=== PATIENT | male | born 1985 | race Caucasian/White ===

== ENCOUNTER 2016-08-03 10:23 | Emergency (ER) | payer OTHER ==
--- NOTE | 2016-08-03 11:23 | UC ---
Shoulder Pain HPI - HPI Summary HPI Summary: Left shoulder pain started 2 days ago wiithout any injury noted by pt. Pt states he has never had an injury to that arm. right handed. has some mild tingling going into the fingers. no chest pain. ROM limited bc pain in all directions. no trauma. started gradually 2 days ago and has increased pain to 5- 6/10 today that is constant, but worse with certain movements. - History of Current Complaint Chief Complaint: UCUpperExtremity Stated Complaint: LEFT SHOULDER PAIN Time Seen by Provider: 08/03/16 11:15 - Allergies/Home Medications Allergies/Adverse Reactions: Allergies Allergy/AdvReac Type Severity Reaction Status Date / Time Pantoprazole [From Protonix] Allergy Anaphylatic Verified 08/03/16 11:20 Shock Bees Allergy Severe Anaphylatic Uncoded 05/24/15 16:44 Shock Home Medications: Home Medications Valsartan 40 mg PO DAILY 08/03/16 [History Confirmed 08/03/16] PMH/Surg Hx/FS Hx/Imm Hx Previously Healthy: Yes Cardiovascular History Of: Reports: Hypertension Respiratory History Of: Denies: Asthma, Bronchitis - Surgical History Surgical History: Yes Surgery Procedure, Year, and Place: BACK SX. T&A - Family History Known Family History: Negative: Cardiac Disease - Social History Alcohol Use: Occasionally Substance Use Type: None Smoking Status (MU): Light Every Day Tobacco Smoker Type: Cigarettes Amount Used/How Often: 2-3 cigs a day Length of Time of Smoking/Using Tobacco: 5 YRS Have You Smoked in the Last Year: Yes Household Exposure Type: Cigarettes Review of Systems Constitutional: Negative Skin: Negative Eyes: Negative ENT: Negative Respiratory: Negative Cardiovascular: Negative Gastrointestinal: Negative Genitourinary: Negative Motor: Decreased ROM Neurovascular: Negative Musculoskeletal: Negative Neurological: Negative Psychological: Negative All Other Systems Reviewed And Are Negative: Yes Physical Exam Triage Information Reviewed: Yes Appearance: Well-Appearing, No Pain Distress, Well-Nourished - very pleasant Vital Signs: Initial Vital Signs Temp 98.3 F 08/03/16 11:08 Pulse 81 08/03/16 11:08 Resp 16 08/03/16 11:08 BP 142/85 08/03/16 11:08 Pulse Ox 100 08/03/16 11:08 Vital Signs Reviewed: Yes Eye Exam: Normal ENT Exam: Normal Neck exam: Normal Respiratory Exam: Normal Respiratory: Positive: Lungs clear, Normal breath sounds Cardiovascular Exam: Normal Cardiovascular: Positive: RRR, No Murmur, Pulses Normal, Brisk Capillary Refill Abdominal Exam: Normal Musculoskeletal: Positive: Strength Intact, No Edema, Other: - left shoulder with mild tenderness at AC joint. Limited abduction to 130 and flexion to 90 degrees, limited external rotation, intrenal rotation to hip only. strength intact. + 2 B/T/BR b/l. sensation intact. CR brisk. Neurological Exam: Normal Psychological Exam: Normal Skin Exam: Normal Shoulder Course/Dx - Course Course Of Treatment: left shoulder xray - CALCIFIC TENDINITIS, OTHERWISE NEGATIVE. - Differential Dx/Diagnosis Differential Diagnosis/HQI/PQRI: Arthritis, Bursitis, Sprain, Strain, Tendonitis Provider Diagnoses: left shoulder calcific tendonitis Discharge - Discharge Plan Condition: Stable Disposition: HOME Patient Education Materials: Calcific Tendinitis (ED) Referrals: Moni Alvarado RN [Primary Care Provider] - Delroy Sheikh MD [Medical Doctor] - 2 Days Additional Instructions: you can take ibuprofen 600mgs every 8 hours as needed for pain. ice. call the ortho for follow up. xray shows calcific tendinosis
--- NOTE | 2016-08-03 11:52 | RAD ---
INDICATION: Left shoulder pain. No trauma COMPARISON: None TECHNIQUE: Routine frontal and Y views were obtained. FINDINGS: There are no acute bony findings. The articular relationships are maintained. There is evidence of calcific tendinitis. IMPRESSION: CALCIFIC TENDINITIS, OTHERWISE NEGATIVE.
[2016-08-03 12:08] VITALS: BP 136/80
== END 2016-08-03 12:12 | disposition home or self-care (01) ==
LOC: UCCORT 10:23
DX: M75.32 Calcific tendinitis of left shoulder (principal); I10 Essential (primary) hypertension; F17.210 Nicotine dependence, cigarettes, uncomplicated
CPT/HCPCS: 99212; G0463

== ENCOUNTER 2016-11-22 15:58 | Emergency (ER) | payer OTHER ==
[2016-11-22 16:12] VITALS: BP 141/84
--- NOTE | 2016-11-22 16:27 | UC ---
Skin Complaint HPI - History of Current Complaint Chief Complaint: UCSkin Time Seen by Provider: 11/22/16 16:17 Stated Complaint: STEPPED ON NAIL Hx Obtained From: Patient Onset/Duration: Sudden Onset - stepped on a nail last night, Still Present - still a little sore Skin Exposure Onset/Duration: Days Ago - 1 Timing: Constant Onset Severity: Moderate Current Severity: Mild Location: Foot (Left) Character: Redness, Painful Aggravating: Touch Alleviating: Nothing Associated Signs & Symptoms: Positive: Tenderness. Negative: Fever, Chills, Rash Related History: Trauma - stepped on a nail. - Allergy/Home Medications Allergies/Adverse Reactions: Allergies Allergy/AdvReac Type Severity Reaction Status Date / Time Pantoprazole [From Protonix] Allergy Anaphylatic Verified 11/22/16 16:08 Shock Bees Allergy Severe Anaphylatic Uncoded 11/22/16 16:08 Shock Review of Systems All Other Systems Reviewed And Are Negative: Yes PMH/Surg Hx/FS Hx/Imm Hx Cardiovascular History: Hypertension - Surgical History Surgical History: Yes Surgery Procedure, Year, and Place: BACK SX. T&A - Family History Known Family History: Positive: Cardiac Disease, Hypertension, Diabetes - Social History Occupation: Employed Full-time Lives: Alone Alcohol Use: Occasionally Substance Use Type: None Smoking Status (MU): Heavy Every Day Tobacco Smoker Type: Cigarettes Amount Used/How Often: 1/2 PPD Length of Time of Smoking/Using Tobacco: 5 YRS Have You Smoked in the Last Year: Yes Household Exposure Type: Cigarettes Cessation Counseling: Patient Advised to Stop Physical Exam Triage Information Reviewed: Yes Appearance: Well-Appearing, No Pain Distress, Well-Nourished Vital Signs: Initial Vital Signs Temp 98.1 F 11/22/16 16:08 Pulse 86 11/22/16 16:08 Resp 16 11/22/16 16:08 BP 141/84 11/22/16 16:08 Pulse Ox 99 11/22/16 16:08 Vital Signs Reviewed: Yes Eyes: Positive: Conjunctiva Clear Neck exam: Normal Respiratory Exam: Normal Cardiovascular Exam: Normal Musculoskeletal Exam: Normal Neurological Exam: Normal Psychological Exam: Normal Skin: Positive: Other - see diagram, puncture wound with erythema. Course/Dx - Differential Diagnoses - Skin Complaint Differential Diagnoses: Abscess, Allergic Reaction, Cellulitis - Diagnoses Provider Diagnoses: Puncture wound left foot, no repair. Cellulitis left foot. Discharge - Discharge Plan Condition: Stable Disposition: HOME Prescriptions: Amoxicillin/Clavulanate TAB* [Augmentin TAB 875*] 875 mg PO BID #14 tab Patient Education Materials: Cellulitis (ED), Puncture Wound (ED), Amoxicillin/ Clavulanate Potassium (By mouth) Referrals: Moni Alvarado RN [Primary Care Provider] - If Needed (continue to follow up on the blood pressure.) Additional Instructions: You can use imodium (or generic) with each dose of augmentin (Amox/Clav) to prevent the diarrhea. Images Feet (Multiple View): 1 - Puncture wound 2 - redness, swelling and warmth
[2016-11-22] MEDS ORDERED: Tetan/Diph/Pertus SYR(Tdap)* 0.5 ML SYR(BOOSTRIX) use SYR IM ONE (16:35)
[2016-11-22] MEDS ORDERED: Amoxicillin/Clavulanate TAB* 875 MG PO ONE (16:39)
== END 2016-11-22 16:59 | disposition home or self-care (01) ==
LOC: UCCORT 15:58
DX: S91.332A Puncture wound without foreign body, left foot, initial encounter (principal); L03.116 Cellulitis of left lower limb; W45.0XXA Nail entering through skin, initial encounter; F17.210 Nicotine dependence, cigarettes, uncomplicated
CPT/HCPCS: 90471; 90715; 99212; A9270-GY; G0463

== ENCOUNTER 2017-09-23 13:47 | Emergency (ER) | payer OTHER ==
--- NOTE | 2017-09-23 15:00 | UC ---
Throat Pain/Nasal Piero HPI - HPI Summary HPI Summary: 31 y/o male presents to the urgent care c/o bilateral ear pain and sore throat worsening over past week. Pt reports He recently travelled on a plane and returned about a week ago. He then developed on and off B/L ear pain associated w/ mild sore throat and subjective fever at home. Pain is 2/10 now. Pt has not taking anything to alleviate symptoms. Pt denies DEGROOT, dizziness, tinnitus, SOB, chest pain, abdominal pain, N/V/D. - History of Current Complaint Stated Complaint: BILATERAL EAR COMPLAINT SORE THROAT Time Seen by Provider: 09/23/17 14:58 Hx Obtained From: Patient Onset/Duration: Gradual Onset, Lasting Weeks - 1 wee, Still Present, Worse Since - yesterday Severity: Mild Pain Intensity: 2 Pain Scale Used: 0-10 Numeric Cough: None Associated Signs & Symptoms: Positive: Dysphagia - mild sore throat, Fever - low subjective fever at home - Epiglottits Risk Factors Epiglottis Risk Factors: Negative - Allergies/Home Medications Allergies/Adverse Reactions: Allergies Allergy/AdvReac Type Severity Reaction Status Date / Time pantoprazole [From Protonix] Allergy Anaphylatic Verified 09/23/17 15:00 Shock Bees Allergy Severe Anaphylatic Uncoded 09/23/17 15:00 Shock PMH/Surg Hx/FS Hx/Imm Hx Previously Healthy: Yes Cardiovascular History: Hypertension - Surgical History Surgical History: Yes Surgery Procedure, Year, and Place: BACK SX. T&A - Family History Known Family History: Positive: Cardiac Disease, Hypertension, Diabetes - Social History Occupation: Employed Full-time Lives: With Family Alcohol Use: Occasionally Substance Use Type: None Smoking Status (MU): Heavy Every Day Tobacco Smoker Type: Cigarettes Amount Used/How Often: 1/2 PPD Length of Time of Smoking/Using Tobacco: 5 YRS Have You Smoked in the Last Year: Yes Household Exposure Type: Cigarettes Review of Systems Constitutional: Negative - grade fever at home subjective, Fever Skin: Negative Eyes: Negative ENT: Sore Throat, Ear Ache - B/L ear pain Respiratory: Negative Cardiovascular: Negative Gastrointestinal: Negative Genitourinary: Negative Motor: Negative Neurovascular: Negative Musculoskeletal: Negative Neurological: Negative Psychological: Negative Is Patient Immunocompromised?: No All Other Systems Reviewed And Are Negative: Yes Physical Exam - Summary Physical Exam Summary: VITAL SIGNS: Reviewed. GENERAL: Patient is a well developed and nourished male who is sitting comfortable in the examining table. Patient is not in any acute respiratory distress. HEAD AND FACE: No signs of trauma. No ecchymosis, hematomas or skull depressions. No sinus tenderness. EYES: PERRLA, EOMI x 2, No injected conjunctiva, no nystagmus. No photophobia. EARS: Hearing grossly intact. Ear canals and tympanic membranes are within normal limits. MOUTH: Positive pharynx with mild erythema, no exudates, no palatal petechiae. NO B/L tonsillar enlargement with exudate. Uvula in midline. NECK: Supple, trachea is midline, Positive mild anterior cervical lymphadenopathy, no JVD, no carotid bruit, no c-spine tenderness, neck with full ROM. No meningeal signs, no Kernig's or brudzinskis signs. CHEST: Symmetric, no tenderness at palpation LUNGS: Clear to auscultation bilaterally. No wheezing or crackles. CVS: Regular rate and rhythm, S1 and S2 present, no murmurs or gallops appreciated. ABDOMEN: Soft, non-tender. No signs of distention. No rebound no guarding, and no masses palpated. Bowel sounds are normal. EXTREMITIES: FROM in all major joints, no edema, no cyanosis or clubbing. NEURO: Alert and oriented x 3. No acute neurological deficits. Speech is normal and follows commands. SKIN: Dry and warm Triage Information Reviewed: Yes Throat Pain/Nasal Course/Dx - Course Course Of Treatment: 31 y/o male presents to the urgent care c/o bilateral ear pain and sore throat worsening over past week. Pt reports He recently travelled on a plane and returned about a week ago. He then developed on and off B/L ear pain associated w/ mild sore throat and subjective fever at home. Pain is 2/ 10 now. Pt has not taking anything to alleviate symptoms. Pt denies DEGROOT, dizziness, tinnitus, SOB, chest pain, abdominal pain, N/V/D. Hx obtained. Rapid strep test ordered: negative. Pt w/ a viral pharyngitis on examination. Pt Rx ibuprofen PO to alleviates symptoms of pain and swelling. Advised on hand washing to avoid spreading. Pt advised to rest, eat well and avoid strenuous exercise. If symptoms do not improve or worsen advised to return to the urgent care or f/u with her PCP for further evaluation and treatment. Pt understood and agreed - Differential Dx/Diagnosis Differential Diagnosis/HQI/PQRI: Mononucleosis, Otitis Media, Pharyngitis, Sinusitis, Tonsillitis, URI Provider Diagnoses: 1- viral pharyngitis. 2- Otalgia Discharge - Sign-Out/Discharge Documenting (check all that apply): Discharge/Admit/Transfer - D/C home - Discharge Plan Condition: Stable Disposition: HOME Prescriptions: Ibuprofen TAB* [Motrin TAB* 800 MG] 800 mg PO Q6H PRN #20 tab PRN Reason: otalgia Patient Education Materials: Pharyngitis (ED), Earache (ED) Referrals: Marizol BRYANTP,Moni [Primary Care Provider] - 2 Days Additional Instructions: 1-Please take ibuprofen PO q6-8hrs prn as instructed after meals to alleviate pain and swelling. Increase fluid intake, eat well, rest and avoid strenuous exercise 2-If symptoms do not improve or worsen please return to the urgent care or f/u with your PCP for further evaluation and treatment. - Billing Disposition and Condition Condition: STABLE Disposition: HOME
[2017-09-23 15:03] VITALS: BP 132/80
== END 2017-09-23 15:22 | disposition home or self-care (01) ==
LOC: UCCORT 13:47
DX: H92.03 Otalgia, bilateral (principal); J02.8 Acute pharyngitis due to other specified organisms; Z88.8 Allergy status to other drugs, medicaments and biological substances; Z91.030 Bee allergy status; I10 Essential (primary) hypertension; F17.210 Nicotine dependence, cigarettes, uncomplicated
CPT/HCPCS: 99211; G0463

== ENCOUNTER 2018-04-09 17:47 | Emergency (ER) | payer SELFPAY ==
[2018-04-09] MEDS ORDERED: methylPREDNISolone 125 MG* 2 ML VIAL IM ONE (18:10)
[2018-04-09] MEDS ORDERED: LoraTADine TAB(NF) 10 MG TAB (AUTOSUB to CETIRIZINE) PO ONE ×2 (18:13→18:27)
--- NOTE | 2018-04-09 18:16 | UC ---
Skin Complaint HPI - HPI Summary HPI Summary: per pharmacists: "bilateral arms, abdomin and chest covered with hives, denies any allergens" - started today at 4 AM. on arms, legs, abd, chest and back. has taken 50mgs benadryl several times w/o any relief. denies swelling of lips, tongue, throat. no SOB. no wheezing. no abd pain, n/v/d. -has bee sting allergy. has epi pen even with him but did not use -saw his tamper operator yesterday for blood work but no allergy shots. he has had several allergic reactions and rying to figure out what the cause is. needs to be off of anti-histamines for a period of time before he gets labs done. [place] all [place] bc [place] out of town. concerned about cross contamination and suspects shrimp allergy -Here w/ [facility] Turner -denies CP, palpitations. no h/o arrythmias. +HTN, takes losartan 25mgs daily but did not take it today - History of Current Complaint Chief Complaint: UCSkin Time Seen by Provider: 04/09/18 18:03 Stated Complaint: SKIN CONCERN Pain Intensity: 0 - Allergy/Home Medications Allergies/Adverse Reactions: Allergies Allergy/AdvReac Type Severity Reaction Status Date / Time pantoprazole [From Protonix] Allergy Anaphylatic Verified 04/09/18 18:05 Shock Bees Allergy Severe Anaphylatic Uncoded 04/09/18 18:05 Shock Home Medications: Home Medications Losartan TAB* [Cozaar TAB*] 25 mg PO DAILY 04/09/18 [History Confirmed 04/09/18] Review of Systems All Other Systems Reviewed And Are Negative: Yes Constitutional: Positive: Negative Skin: Positive: Negative Eyes: Positive: Negative ENT: Positive: Negative Respiratory: Positive: Negative Cardiovascular: Positive: Negative Gastrointestinal: Positive: Negative Genitourinary: Positive: Negative Motor: Positive: Negative Neurovascular: Positive: Negative Musculoskeletal: Positive: Negative Neurological: Positive: Negative Psychological: Positive: Negative PMH/Surg Hx/FS Hx/Imm Hx Previously Healthy: Yes - Surgical History Surgical History: Yes Surgery Procedure, Year, and Place: BACK SX. T&A - Family History Known Family History: Positive: Cardiac Disease, Hypertension, Diabetes - Social History Alcohol Use: Occasionally Substance Use Type: None Smoking Status (MU): Heavy Every Day Tobacco Smoker Type: Cigarettes Amount Used/How Often: 1/2 PPD Length of Time of Smoking/Using Tobacco: 5 YRS Have You Smoked in the Last Year: Yes Household Exposure Type: Cigarettes Physical Exam Triage Information Reviewed: Yes Appearance: Well-Appearing, No Pain Distress, Well-Nourished Vital Signs: Initial Vital Signs Temp 98.1 F 04/09/18 18:01 Pulse 81 04/09/18 18:01 Resp 18 04/09/18 18:01 BP 140/81 04/09/18 18:01 Pulse Ox 100 04/09/18 18:01 Vital Signs Reviewed: Yes Eye Exam: Normal ENT: Positive: Normal ENT inspection, Pharynx normal, Uvula midline, Other - no swelling of lips, tongue or uvula.. Negative: Nasal congestion Neck exam: Normal Neck: Positive: Supple, Nontender, No Lymphadenopathy Respiratory Exam: Normal Respiratory: Positive: Lungs clear, Normal breath sounds, No respiratory distress, No accessory muscle use. Negative: Crackles, Rhonchi, Stridor, Wheezing Cardiovascular Exam: Normal Cardiovascular: Positive: RRR, No Murmur, Pulses Normal Abdomen Description: Positive: Nontender, Soft Bowel Sounds: Positive: Present Musculoskeletal Exam: Normal Neurological Exam: Normal Psychological Exam: Normal Skin: Positive: Rashes - significant amount of elevated macules, some coalesced over b/l arms, legs, abd, chest and back. no dc. no streaks. Re-Evaluation - Re-Evaluation First Eval Re-Evaluation Time: 18:30 Change: Unchanged Second Eval Re-Evaluation Time: 18:40 Change: Unchanged Third Eval Re-Evaluation Time: 18:50 Change: Improved - slight improvement in rash, but not signficant. agrees to IM epi and trx to ER for monitoring Fourth Eval Re-Evaluation Time: 19:15 - jittery but starting to see improvement in the urticaria intesnity Change: Improved Course/Dx - Course Course Of Treatment: -solumedrol 125mgs IM x 1 now (~ 16:24 given), 10mgs loratadine. states he has allergy to PPI and H2 blockers therefore will not give H2 maggie. -will hold on epi b/c he has no angioedema and observe. - they are agreeable w/ this plan. -hold losartan - ? cause of hives. f/u with PCP in 2 days. he is on very low dose and will be safe to hold it for 2 days. - no significant improvement 25 mins post solu-medrol. agrees to epinephrine IM 0.3mgs IM. -ER via ambulance for further monitoring. concerning hx with ER visit in [place] 2 days ago with throat swelling. concern for rebound and no improvement with several doses of benadryl and 125mgs solumedrol. -he has shown some improvement already w/ epi. vitals stable. -very agreeable to go to ER via [facility] d/t proximty in urgent treatment. -s/ Shaji Martinez NP [facility] who agrees and accepts the pt. - Differential Diagnoses - Skin Complaint Differential Diagnoses: Anaphylaxis, Angioedema, Urticaria - Diagnoses Provider Diagnoses: Urticaria, allergic reaction Discharge - Sign-Out/Discharge Documenting (check all that apply): Patient Departure All imaging exams completed and their final reports reviewed: No Studies - Discharge Plan Condition: Fair Disposition: TRANS HIGHER LVL OF CARE FAC Referrals: No Primary Care Phys,NOPCP [Primary Care Provider] - Additional Instructions: -Hold the losartan for now until you see your PCP in 2 days, as this class of medicine is known to cause allergic reactions. - Billing Disposition and Condition Condition: FAIR Disposition: Trans Higher Lvl of Care Fac
[2018-04-09] MEDS ORDERED: EPINEPHRINE 1 MG/ML 1 ML VIAL IM ONE (19:02)
[2018-04-09 19:26] VITALS: BP 134/82
== END 2018-04-09 19:20 | disposition short-term general hospital (02) ==
LOC: UCCORT 17:47
DX: L50.9 Urticaria, unspecified (principal); T78.40XA Allergy, unspecified, initial encounter; X58.XXXA Exposure to other specified factors, initial encounter; Z88.8 Allergy status to other drugs, medicaments and biological substances; I10 Essential (primary) hypertension; F17.210 Nicotine dependence, cigarettes, uncomplicated
CPT/HCPCS: 96372; 99213; A9270-GY; G0463; J2930

== ENCOUNTER 2018-04-10 13:26 | Emergency (ER) | payer SELFPAY ==
[2018-04-10] MEDS ORDERED: Famotidine TAB* 20 MG PO ONE ×2 (13:57→16:20)
[2018-04-10] MEDS ORDERED: predniSONE TAB* 20 MG PO ONE (13:57)
[2018-04-10] MEDS ORDERED: diPHENhydraMINE PO* 50 MG PO ONE (13:57)
--- NOTE | 2018-04-10 14:02 | ED ---
Skin Complaint - HPI Summary HPI Summary: The pt is a 32 y.o male presenting to the [facility] with a chief complaint of hives. The hives are reported to have started on Wednesday (04/08/18). The symptoms are described as diffuse (upper body and face), with sensations of burning, redness and initially pruritic. The pt has taken Benadryl and Prednisone as well. Medication alleviated some symptoms, but the symptoms returned shortly after. Symptoms aggravated by nothing. Allergies reviewed and reported. - History of Current Complaint Chief Complaint: EDAllergicReaction Time Seen by Provider: 04/10/18 13:41 Stated Complaint: ALLERGIC REACTION Hx Obtained From: Patient Onset/Duration: Started Days Ago - 04/08/18 Skin Exposure Onset/Duration: Days Ago Timing: Constant Onset Severity: Moderate Current Severity: Moderate Pain Intensity: 5 Pain Scale Used: 0-10 Numeric Skin Location: Diffuse Character: Pruritus, Pain - "Burning", Redness Aggravating Symptom(s): Nothing Alleviating Symptom(s): Other: - Prednisone and Benadryl - Allergy/Home Medications Allergies/Adverse Reactions: Allergies Allergy/AdvReac Type Severity Reaction Status Date / Time Proton Pump Inhibitors Allergy Anaphylatic Verified 04/10/18 14:19 Shock shellfish derived Allergy Anaphylatic Verified 04/10/18 13:54 Shock Bees Allergy Severe Anaphylatic Uncoded 04/09/18 18:05 Shock Home Medications: Home Medications Losartan Potassium 25 mg PO DAILY 04/10/18 [History Confirmed 04/10/18] PMH/Surg Hx/FS Hx/Imm Hx Cardiovascular History: Reports: Hx Hypertension Respiratory History: Denies: Hx Asthma Musculoskeletal History: Reports: Hx Back Problems Sensory History: Denies: Hx Deafness Opthamlomology History: Denies: Hx Legally Blind EENT History: Denies: Hx Deafness - Surgical History Surgery Procedure, Year, and Place: BACK SX. T&A Infectious Disease History: No Infectious Disease History: Denies: Traveled Outside the [place] in Last 30 Days - Family History Known Family History: Positive: Cardiac Disease, Hypertension, Diabetes - Social History Alcohol Use: Weekly Substance Use Type: Reports: None Smoking Status (MU): Heavy Every Day Tobacco Smoker Type: Cigarettes Amount Used/How Often: 1/2 PPD Length of Time of Smoking/Using Tobacco: 5 YRS Have You Smoked in the Last Year: Yes Review of Systems Constitutional: Negative Eyes: Negative ENT: Negative Cardiovascular: Negative Respiratory: Negative Gastrointestinal: Negative Genitourinary: Negative Musculoskeletal: Negative - Hives, redness, pruritic, painful with burning sensation. (Diffuse) Positive: Rash Neurological: Negative Psychological: Normal All Other Systems Reviewed And Are Negative: Yes Physical Exam - Summary Physical Exam Summary: Appearance: The patient is well-nourished in no acute distress and in no acute pain. Skin: Diffuse blanching macular rash; Confluent on his back and spots, HEENT: The head is normocephalic and atraumatic. The pupils are equal and reactive. The conjunctivae are clear and without drainage. Nares are patent and without drainage. Mouth reveals moist mucous membranes and the throat is without erythema and exudate. The external ears are intact. The ear canals are patent and without drainage. The tympanic membranes are intact. Neck: The neck is supple with full range of motion and non-tender. There are no carotid bruits. There is no neck vein distension. Respiratory: Chest is non-tender. Lungs are clear to auscultation and breath sounds are symmetrical and equal. Cardiovascular: Heart is regular rate and rhythm. There is no murmur or rub auscultated. There is no peripheral edema and pulses are symmetrical and equal. Abdomen: The abdomen is soft and non-tender. There are normal bowel sounds heard in all four quadrants and there is no organomegaly palpated. Musculoskeletal: There is no back tenderness noted. Extremities are non-tender with full range of motion. There is good capillary refill. There is no peripheral edema or calf tenderness elicited. Neurological: Patient is alert and oriented to person, place and time. The patient has symmetrical motor strength in all four extremities. Cranial nerves are grossly intact. Deep tendon reflexes are symmetrical and equal in all four extremities. Psychiatric: The patient has an appropriate affect and does not exhibit any anxiety or depression. Triage Information Reviewed: Yes Vital Signs On Initial Exam: Initial Vitals Temp Pulse Resp BP Pulse Ox 99.2 F 108 18 159/76 99 04/10/18 13:32 04/10/18 13:32 04/10/18 13:32 04/10/18 13:32 04/10/18 13:32 Vital Signs Reviewed: Yes Diagnostics - Vital Signs Vital Signs Temp Pulse Resp BP Pulse Ox 04/10/18 13:42 109 24 156/82 98 04/10/18 13:41 111 99 04/10/18 13:32 99.2 F 108 18 159/76 99 - Laboratory Lab Statement: Any lab studies that have been ordered have been reviewed, and results considered in the medical decision making process. Course/Dx - Course Course Of Treatment: Mr. Issa presented complaining of diffuse urticaria. It started about a day and a half ago and he was seen at the [facility] and referred to the [place] emergency department. He was given medications in the emergency department and discharged with instructions to take Benadryl and 20 mg of prednisone twice a day. He took 20 mg this morning and Benadryl about 10 AM but the rash has recurred although it is not as bad as it was yesterday. He denies any trouble breathing or swallowing. He was given additional Benadryl (it had been 4 hours since his last dose), Pepcid by mouth and additional prednisone. This completely resolved his urticaria. I warned him that it may return he will need to continue to taking the Benadryl as well as Pepcid. If this does not work he may need to go up on the prednisone but presumably whatever this allergen is will be out of his system soon. He remained nontoxic in appearance stable vital signs throughout his visit. - Diagnoses Provider Diagnoses: Urticaria Discharge - Sign-Out/Discharge Documenting (check all that apply): Patient Departure - Discharge Plan Condition: Stable Disposition: HOME Patient Education Materials: Urticaria (ED) Referrals: No Primary Care Phys,NOPCP [Primary Care Provider] - Additional Instructions: Follow up with the Medical Technician as previously scheduled. - Billing Disposition and Condition Condition: STABLE Disposition: Home - Attestation Statements Document Initiated by Scribe: Yes Documenting Scribe: Vinh Burch Provider For Whom Scribe is Documenting (Include Credential): Dr. Wayne Rodasibe Attestation: Christopher, ahmet Carreraed for Dr. Wayne Bailey on 04/10/18 at 2107. Scribe Documentation Reviewed: Yes Provider Attestation: The documentation as recorded by the Vinh clayton accurately reflects the service I personally performed and the decisions made by me, Dr. Wayne Bailey
[2018-04-10 16:57] VITALS: BP 120/72
== END 2018-04-10 16:56 | disposition home or self-care (01) ==
LOC: ED 13:26
DX: L50.9 Urticaria, unspecified (principal); I10 Essential (primary) hypertension; F17.210 Nicotine dependence, cigarettes, uncomplicated
CPT/HCPCS: 99283; A9270-GY; J7512

== ENCOUNTER 2018-06-04 17:30 | Emergency (ER) | payer OTHER ==
[2018-06-04 18:00] VITALS: BP 137/88
--- NOTE | 2018-06-04 18:22 | UC ---
Complaint Male HPI - HPI Summary HPI Summary: Per body service team member "for past month, left testicular fullness, "sack of worms" denies any discharge. " Not painful. Just feels a "pulling" sensation, perhaps /10. no dysuria. no dc. denies risk of STD. no masses. Mom is a nurse and told him to come get it checked out. - History of Current Complaint Chief Complaint: UCGU Stated Complaint: PERSONAL Time Seen by Provider: 06/04/18 18:16 Pain Intensity: 0 - Allergies/Home Medications Allergies/Adverse Reactions: Allergies Allergy/AdvReac Type Severity Reaction Status Date / Time Proton Pump Inhibitors Allergy Anaphylatic Verified 06/04/18 18:01 Shock shellfish derived Allergy Anaphylatic Verified 06/04/18 18:01 Shock Bees Allergy Severe Anaphylatic Uncoded 06/04/18 18:01 Shock Home Medications: Home Medications NK [No Home Medications Reported] 06/04/18 [History Confirmed 06/04/18] PMH/Surg Hx/FS Hx/Imm Hx Previously Healthy: Yes - Surgical History Surgical History: Yes Surgery Procedure, Year, and Place: BACK SX. T&A - Family History Known Family History: Positive: Cardiac Disease, Hypertension, Diabetes - Social History Alcohol Use: Weekly Substance Use Type: None Smoking Status (MU): Heavy Every Day Tobacco Smoker Type: Cigarettes Amount Used/How Often: 1/2 PPD Length of Time of Smoking/Using Tobacco: 5 YRS Have You Smoked in the Last Year: Yes Household Exposure Type: Cigarettes Review of Systems All Other Systems Reviewed And Are Negative: Yes Constitutional: Positive: Negative Skin: Positive: Negative Eyes: Positive: Negative ENT: Positive: Negative Respiratory: Positive: Negative Cardiovascular: Positive: Negative Gastrointestinal: Positive: Negative Genitourinary: Positive: Negative Motor: Positive: Negative Neurovascular: Positive: Negative Musculoskeletal: Positive: Negative Neurological: Positive: Negative Psychological: Positive: Negative Is Patient Immunocompromised?: No Physical Exam Triage Information Reviewed: Yes Appearance: Well-Appearing, No Pain Distress, Well-Nourished - very pleasant Vital Signs: Initial Vital Signs Temp 99.1 F 06/04/18 17:57 Pulse 84 06/04/18 17:57 Resp 16 06/04/18 17:57 BP 137/88 06/04/18 17:57 Pulse Ox 100 06/04/18 17:57 Respiratory Exam: Normal Respiratory: Positive: Lungs clear Cardiovascular Exam: Normal Abdominal Exam: Normal Abdomen Description: Positive: Nontender, Soft Male Genital Exam: Positive: Other - left testicle with mild cystic like areas.. Negative: No Hernia, Epididymal Tenderness, Erythema, Hernia Mass, Urethral Discharge Musculoskeletal Exam: Normal Neurological Exam: Normal Psychological Exam: Normal Skin Exam: Normal Complaint Male Course/Dx - Differential Dx/Diagnosis Differential Diagnosis/HQI/PQRI: Epididymitis, Cancer, Other - left testicle hydrocoele or varicoele Provider Diagnosis: Pain in left testicle Discharge - Sign-Out/Discharge Documenting (check all that apply): Patient Departure All imaging exams completed and their final reports reviewed: No Studies - Discharge Plan Condition: Stable Disposition: HOME Patient Education Materials: Testicle Pain (ED) Referrals: No Primary Care Phys,NOPCP [Primary Care Provider] - Additional Instructions: We discussed the probablity of having something called a hydrocoele or a varicoele in your left testicle. Please call your PCP this week to be seen and request an ultrasound for further evaluation. Consideration should be given to see a urologist for further evaluation as well. - Billing Disposition and Condition Condition: STABLE Disposition: Home
== END 2018-06-04 18:56 | disposition home or self-care (01) ==
LOC: UCCORT 17:30
DX: N50.812 Left testicular pain (principal); Z88.8 Allergy status to other drugs, medicaments and biological substances; F17.210 Nicotine dependence, cigarettes, uncomplicated
CPT/HCPCS: 99211; G0463